=== PATIENT | male | born 1965 | race Caucasian/White ===

== ENCOUNTER 2017-01-04 17:57 | Emergency (ER) | payer MEDICARE ==
[~2017-01-04] VITALS: Ht 180.3 cm; Wt 88.0 kg
[2017-01-04] MEDS ORDERED: IBUPROFEN 200 MG TABLET PO ONE (18:30)
[2017-01-04] MEDS ORDERED: ASPIRIN 81 MG TABLET CHEW PO ONE (18:30)
[2017-01-04] MEDS ORDERED: SODIUM CHLORIDE FLUSH 10ML SYR IVF ONE (18:30)
[2017-01-04] MEDS ORDERED: SODIUM CHLORIDE 0.9% 1,000ML IVBOLUS ONE (18:30)
[2017-01-04] MEDS ORDERED: IBUPROFEN 200 MG TABLET ONE (18:31)
[2017-01-04 18:37] LABS: BLOOD UREA NITROGEN 6 mg/dL (7-18)
[2017-01-04 18:42] LABS: IS PT STATUS REG ER OR PRE ER? YES
[2017-01-04 18:43] LABS: DIFF TOTAL CELLS COUNTED 100 CELL DIFF
[2017-01-04 18:55] LABS: ANISOCYTOSIS 1+
[2017-01-04 18:57] LABS: GIANT PLATELETS 1+; LARGE PLATELETS 1+; POIKILOCYTOSIS 1+; VERIFY COUNTS? YES
[2017-01-04 21:24] VITALS: BP 139/65
== END 2017-01-04 21:28 | disposition home or self-care (01) ==
LOC: ED 21:08
DX: B34.9 Viral infection, unspecified (principal); M10.9 Gout, unspecified
CPT/HCPCS: 36415; 71020; 80048; 82040; 83605; 84145; 84484; 85025; 87040; 93005; 96360; 96361; 99285; J7030